=== PATIENT | female | born 1955 | race Caucasian/White ===

== ENCOUNTER 2016-12-22 04:48 | Observation (INO) | payer OTHER ==
[2016-12-22] MEDS ORDERED: ONDANSETRON 4 MG/2 ML VIAL ONE (04:59)
[2016-12-22] MEDS ORDERED: NS 1,000 ML IV ONE (05:04)
[2016-12-22] MEDS ORDERED: ONDANSETRON 4 MG/2 ML VIAL IVP ONE (05:04)
--- NOTE | 2016-12-22 05:04 | EDPHY ---
H & P Stated Complaint: left sided back pain, N/V since 2199 HPI/ROS: HPI CHIEF COMPLAINT: Left flank pain, nausea vomiting HISTORY OF PRESENT ILLNESS: This patient very pleasant 61-year-old female significant past medical history for thyroid disease she presents emergency room with left flank pain. Associated nausea vomiting. She states on Wednesday she had 30 minutes of this however resolved taking ibuprofen and heating pad. Her symptoms return last night around 10:30 p.m.. Symptoms have been persistent all night is 8/10 left flank pain dull ache/sharp stabbing. She denies any significant radiation to the abdomen. 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 . Ovarian cyst surgery. Social History: Denies daily use of drugs alcohol tobacco products Family History: Noncontributory ROS REVIEW OF SYSTEMS: A comprehensive 10 point review of systems is otherwise negative aside from elements mentioned in the history of present illness. Exam Constitutional triage nursing summary reviewed, vital signs reviewed, awake/ alert. Eyes normal conjunctivae and sclera, EOMI, PERRLA. HENT normal inspection, atraumatic, moist mucus membranes, no epistaxis, neck supple/ no meningismus, no raccoon eyes. Respiratory clear to auscultation bilaterally, normal breath sounds, no respiratory distress, no wheezing. Cardiovascular rate normal, regular rhythm, no murmur, no edema, distal pulses normal. Gastrointestinal soft, non-tender, no rebound, no guarding, normal bowel sounds, no distension, no pulsatile mass. Genitourinary left times palpation over left CVA Musculoskeletal no midline vertebral tenderness, full range of motion, no calf swelling, no tenderness of extremities, no meningismus, good pulses, neurovascularly intact. Skin pink, warm, & dry, no rash, skin atraumatic. Neurologic awake, alert and oriented x 3, AAOx3, moves all 4 extremities equally, motor intact, sensory intact, CN II-XII intact, normal cerebellar, normal vision, normal speech. Psychiatric normal mood/affect. Heme/Lymph/Immune no lymphadenopathy. Differential diagnosis includes but is not limited to and in no particular order : Bowel obstruction, appendicitis, gallbladder disease, diverticulitis, colitis , enteritis, perforated viscus, gastritis, GERD, esophagitis, urinary tract infection, pyelonephritis, kidney stones Medical Decision Making: Plan for this patient IV establishment IV fluid bolus , IV Dilaudid for pain control, IV Zofran for nausea, check abdominal blood work including urinalysis, CT scan abdomen pelvis without contrast for flank pain. Re-evaluate. Re-evaluation: CT scan of the abdomen pelvis without contrast for flank pain The results of the study are this shows a left-sided UPJ stone. 7.2 mm hydronephrosis present. The study was read by Dr. Del Castillo I viewed the images myself on the PACS system. 0629AM: After further discussion with this patient she is requesting hospital admission for pain control and nausea control. She has a rather large left UPJ stone. Hydronephrosis present. Urine is still pending at this time. She is requesting hospital admission. Will speak with the hospitalist service for admission for pain control and Urology to see this patient. 0642AM: I consult Dr. Blue with Urology on-call. They will plan on seeing the patient. Did recommend IV Rocephin 1 g. Urinalysis sent. Urine culture sent. Plan will be for admission to the hospital for intractable left flank pain. Nausea vomiting. Possible UTI. Source: Patient - Personal History Current Tetanus/Diphtheria Vaccine: Yes Current Tetanus Diphtheria and Acellular Pertussis (TDAP): Yes Tetanus Vaccine Date: <10 years - Medical/Surgical History Hx Asthma: No Hx Chronic Respiratory Disease: No Hx Diabetes: No Hx Cardiac Disease: No Hx Renal Disease: No Hx Cirrhosis: No Hx Alcoholism: No Hx HIV/AIDS: No Hx Splenectomy or Spleen Trauma: No Other PMH: ruptured ovarian cyst, 2 , thyroid problem - Social History Smoking Status: Never smoked Constitutional: Initial Vital Signs Temperature (C) 36.3 C 12/22/16 04:52 Heart Rate 75 12/22/16 04:52 Respiratory Rate 18 12/22/16 04:52 Blood Pressure 156/89 H 12/22/16 04:52 O2 Sat (%) 100 12/22/16 04:52 O2 Delivery Mode Room Air Allergies/Adverse Reactions: ampicillin Allergy (Verified 12/22/16 04:57) Sulfa (Sulfonamide Antibiotics) Allergy (Verified 12/22/16 04:57) Home Medications: Medication Instructions Recorded Cholecalciferol Vit D3 [Vitamin D3 2,000 units PO DAILY 12/22/16 2000 units tab (OTC)] Ibuprofen [Motrin (*)] 200 mg PO DAILY PRN 12/22/16 Levothyroxine [Synthroid 88 mcg 88 mcg PO DAILY06 12/22/16 (*)] Medical Decision Making - Diagnostics Imaging Results: Imaging Impressions Abdomen/Pelvis CT 12/22/16 05:12 Impression: 1. 7.2-mm calculus in the proximal left ureter with moderate left hydronephrosis. 2. Small hiatal hernia. 3. Multiple calcified leiomyomata in the uterus. 4. Other chronic findings as above. Results discussed with Dr. Bridger Carreon at 0534 hours on 22 December 2016. Final interpretation concurs with initial preliminary radiologist impression. Attention: This CT examination is specifically designed to evaluate patients who are clinically suspected of having acute obstructive uropathy. This examination does not use radiographic contrast, and as such, provides only a limited evaluation of the abdomen, pelvis and retroperitoneum. If there is further clinical suspicion for pathologic conditions other than obstructive uropathy, a complete CT evaluation of the abdomen and pelvis utilizing intravenous, oral, and rectal contrast should be considered. - Data Points Laboratory Results: Laboratory Results 12/22/16 05:06 12/22/16 05:06 Medications Given: Sodium Chloride (Ns) 1,000 mls @ 125 mls/hr IV CONT OJEL Stop: 06/20/17 06:59 Last Admin: 12/22/16 07:32 Dose: 1,000 mls Ketorolac Tromethamine (Toradol) 15 mg IVP Q6HRS JOEL Stop: 12/27/16 12:29 Last Admin: 12/22/16 18:20 Dose: 15 mg Morphine Sulfate (Morphine) 1 - 2 mg IVP Q1HR PRN PRN Reason: Pain, Severe Unable to Take PO Stop: 01/01/17 06:45 Last Admin: 12/22/16 12:29 Dose: 2 mg Tamsulosin HCl (Flomax) 0.4 mg PO DAILY JOEL Stop: 06/20/17 06:59 Last Admin: 12/22/16 10:50 Dose: Not Given Discontinued Medications Hydromorphone HCl (Dilaudid) 0.5 mg IVP EDNOW ONE Stop: 12/22/16 05:13 Last Admin: 12/22/16 05:25 Dose: 0.5 mg Sodium Chloride (Ns) 1,000 mls @ 0 mls/hr IV EDNOW ONE; Wide Open PRN Reason: Protocol Stop: 12/22/16 05:05 Last Admin: 12/22/16 05:04 Dose: 1,000 mls Ceftriaxone Sodium/Dextrose (Rocephin 1 Gm (Premix)) 50 mls @ 100 mls/hr IV EDNOW ONE PRN Reason: Protocol Stop: 12/22/16 07:00 Last Admin: 12/22/16 06:39 Dose: 50 mls Levofloxacin/Dextrose (Levaquin 500 Mg (Premix)) 100 mls @ 100 mls/hr IV ONCALL ONE PRN Reason: Protocol Stop: 12/22/16 17:59 Last Admin: 12/22/16 18:39 Dose: Not Given Ketorolac Tromethamine (Toradol) 15 mg IVP EDNOW ONE Stop: 12/22/16 05:47 Last Admin: 12/22/16 05:47 Dose: 15 mg Ondansetron HCl (Zofran) 4 mg IVP EDNOW ONE Stop: 12/22/16 05:05 Last Admin: 12/22/16 05:04 Dose: 4 mg Departure - Departure Disposition: [facility] Inpatient Acute Clinical Impression: Kidney stone on left side Condition: Good
[2016-12-22] MEDS ORDERED: HYDROmorphONE/DILAUDID 1 MG/ML INJ IVP ONE (05:12)
[2016-12-22 05:29] LABS: % IMMATURE GRANULYOCYTES 0.5 % (0.0-1.1); ABSOLUTE IMMATURE GRANULOCYTES 0.07 10^3/uL (0.00-0.10); ABSOLUTE NRBC COUNT 0.02 10^3/uL (0-0.01); ADD DIFF? NO; ADD MORPH? YES; ADD SCAN? NO; ATYPICAL LYMPHOCYTE FLAG 0 (0-99); FRAGMENT RBC FLAG 60 (0-99); HEMOGLOBIN 11.4 g/dL (12.6-16.3); LEFT SHIFT FLG 0 (0-99); LIPEMIA HEMOLYSIS FLAG 80 (0-99); MEAN CELL HEMOGLOBIN 30.9 pg (27.9-34.1); MEAN CELL HEMOGLOBIN CONCENTR. 33.5 g/dL (32.4-36.7); MEAN CELL VOLUME 92.1 fL (81.5-99.8); MEAN PLATELET VOLUME 10.7 fL (8.7-11.7); NRBC-AUTO% 0.1 % (0.0-0.2); PLATELET CLUMPS FLAG 0 (0-99); PLATELET COUNT 258 10^3/uL (150-400); RED BLOOD CELL COUNT 3.69 10^6/uL (4.18-5.33)
[2016-12-22 05:40] LABS: ALANINE AMINOTRANSFERASE 34 IU/L (9-52); ALBUMIN 4.6 g/dL (3.5-5.0); ALKALINE PHOSPHATASE 76 IU/L (38-126); ANION GAP 13 mEq/L (8-16); ASPARTATE AMINOTRANSFERASE 15 IU/L (14-46); BILIRUBIN,TOTAL 1.1 mg/dL (0.1-1.4); BILIRUBIN-CONJUGATED 0.2 mg/dL (0.0-0.5); BILIRUBIN-UNCONJUGATED 0.9 mg/dL (0.0-1.1); CALCIUM 9.2 mg/dL (8.5-10.4); CARBON DIOXIDE 22 mEq/l (22-31); CHLORIDE 103 mEq/L (97-110); CREATININE 0.9 mg/dL (0.6-1.0); GLOMERULAR FILTRATION RATE > 60; GLUCOSE 135 mg/dL (70-100); SODIUM 138 mEq/L (134-144); TOTAL PROTEIN 7.4 g/dL (6.3-8.2)
[2016-12-22] MEDS ORDERED: KETOROLAC 15 MG/1 ML SDV IVP ONE (05:46)
[2016-12-22] MEDS ORDERED: KETOROLAC 15 MG/1 ML SDV ONE (05:46)
[2016-12-22 06:01] LABS: INR 1.09 (0.83-1.16)
[2016-12-22 06:02] LABS: APTT 27.1 SEC (23.0-38.0)
[2016-12-22 06:06] LABS: RED CELL DISTRIBUTION WIDTH 20.1 % (11.5-15.2)
[2016-12-22 06:10] LABS: COLOR YELLOW; LEUKOCYTE ESTERASE,URINE 1+ (NEGATIVE); NITRITE,URINE NEGATIVE (NEGATIVE)
[2016-12-22 06:35] LABS: MUCUS TRACE /lpf (NONE-1+); RBC,URINE 50-182 /hpf (0-3)
[2016-12-22 06:38] LABS: ACANTHOCYTES 1+; ELLIPTOCYTES 1+; KERATOCYTES 1+; PLATELET ESTIMATE ADEQUATE (ADEQ)
[2016-12-22] MEDS ORDERED: oxyCODONE IR 5 MG TAB PO PRN (06:46)
[2016-12-22] MEDS ORDERED: ONDANSETRON DISINTEGRATING 4 MG TAB PO PRN (06:46)
[2016-12-22] MEDS ORDERED: KETOROLAC 15 MG/1 ML SDV IVP PRN (06:46)
[2016-12-22] MEDS ORDERED: LORazepam 0.5 MG TAB PO PRN (06:46)
[2016-12-22] MEDS ORDERED: ONDANSETRON 4 MG/2 ML VIAL IVP PRN (06:46)
[2016-12-22] MEDS ORDERED: ACETAMINOPHEN 325 MG TAB PO PRN (06:46)
[2016-12-22] MEDS ORDERED: CEFTRIAXONE 1 GM/DEXTROSE/50 ML BAG IV ONE (07:28)
[2016-12-22] MEDS ORDERED: TAMSULOSIN HCL 0.4 MG CAP PO ONE (07:28)
[2016-12-22] MEDS: TAMSULOSIN HCL 0.4 MG CAP PO SCH ×2 (07:31→10:50)
[2016-12-22] MEDS: NS 1,000 ML IV SCH (07:32)
--- NOTE | 2016-12-22 07:41 | GHP ---
[f rep st] HISTORY AND PHYSICAL DATE OF ADMISSION: 12/22/2016 CHIEF COMPLAINT: Left-sided flank pain. HISTORY OF PRESENT ILLNESS: A 61-year-old, healthy female, presents with acute onset of left-sided f lank pain. It started the day before her presentation, described as severe stabbing, associated with intractable nausea. She, thus, presented to the emergency department. The pain was nonradiating. She has never had pain like this before. She has never had a stone before. She did not have any fev ers, though she is shivering when I see her. PAST MEDICAL/SURGICAL HISTORY: 1. Hypothyroid. 2. Multiple gynecologic surgeries in her 30s. MEDICATIONS: Please see medication reconciliation. ALLERGIES: Ampicillin and sulfa. FAMILY HISTORY: No stones. SOCIAL HISTORY: She occasionally drinks alcohol. She does not smoke. REVIEW OF SYSTEMS: A 10-point review of systems is conducted and is negative, except per HPI. PHYSICAL EXAM: Blood pressure 103/67, heart rate 70, respiration rate 16, saturation 97% on room air , temperature is 36.3. In general, the patient is a very pleasant female, who appears mildly uncomfo rtable. No acute distress. HEENT shows her to be normocephalic, atraumatic. Cardiovascular exam sh ows a regular rate and rhythm. No murmurs, rubs, or gallops. Pulmonary exam shows lungs clear to au scultation bilaterally. Abdominal exam shows mild left-sided abdominal and flank pain. She has no r ebound or guarding. Skin exam showed no rash. exam is no Dickinson. Neurologic exam shows her to be alert and oriented x3. She is moving all extremities. Psychiatric exam shows normal mood and affec t. LABORATORY DATA: White count is 15.2, hemoglobin is 11.4, platelets are 258. INR is 1. Basic metab olic panel is normal. LFTs are normal. Urinalysis shows 3+ blood, 1+ leukocyte esterase, 50-182 red s, and 5-10 whites. DATA: 1. I discussed this Dr. Carreon. 2. I reviewed the preliminary read of her CT scan. It shows a 7.2 mm proximal left ureteral stone w ith moderate hydronephrosis. Small hiatal hernia. Calcified fibroid uterus. IMPRESSION AND PLAN: This is a 61-year-old female, presents with a 7.2 mm, left-sided, obstructing s tone. 1. Nephrolithiasis: Unlikely that this size stone will pass on its own. Regardless, I will prescri be her Flomax. Dr. Noris Blue has been consulted by the ED. We will control her pain with Yara dol as well as IV and oral narcotics. We will keep her n.p.o. for now. We will provide her antiemet ics. This is a high-risk diagnosis requiring IV narcotics. 2. Hypothyroid: Continue her Synthroid. /[id number]/MODL
--- NOTE | 2016-12-22 09:19 | SOAPPROG ---
SOAP Progress Note Assessment/Plan: Assessment: Left proximal ureteral stone. Plan: Proceed with ureteroscopy later this afternoon. Full consult to follow. Objective: Vital Signs Temp Pulse Resp BP Pulse Ox 36.3 C 62 14 104/64 97 12/22/16 08:12 12/22/16 08:12 12/22/16 08:12 12/22/16 08:12 12/22/16 06:36 12/21/16 12/22/16 12/23/16 05:59 05:59 05:59 Intake Total 175 Balance 175 PT 14.0 SEC (12.0-15.0) 12/22/16 05:06 INR 1.09 (0.83-1.16) 12/22/16 05:06 ICD10 Worksheet Patient Problems: Problems Problem Status Onset Kidney stone on left side Acute
[2016-12-22] MEDS: KETOROLAC 15 MG/1 ML SDV IVP SCH ×2 (12:24→18:20)
--- NOTE | 2016-12-22 13:33 | HOSPPROG ---
Hospitalist Progress Note Assessment/Plan: Chart reviewed. Pt seen and examined. 61 yo female admitted with 7 mm left obstructing nephrolithiasis with hydronephrosis. Pain controlled. No fevers. No flank pain. N/V resolved. Planning for ureteroscopy and definitive stone management with Dr. Hartman later today. Likely d/c home tomorrow. Subjective: Pt feels better. Denies fevers. No pain currently. No more N/V. Objective: Vital Signs Temp Pulse Resp BP Pulse Ox 36.3 C 62 14 104/64 97 12/22/16 08:12 12/22/16 08:12 12/22/16 08:12 12/22/16 08:12 12/22/16 06:36 12/21/16 12/22/16 12/23/16 05:59 05:59 05:59 Intake Total 175 Balance 175 PT 14.0 SEC (12.0-15.0) 12/22/16 05:06 INR 1.09 (0.83-1.16) 12/22/16 05:06 - Physical Exam Constitutional: no apparent distress Eyes: PERRL Ears, Nose, Mouth, Throat: moist mucous membranes Cardiovascular: regular rate and rhythym Respiratory: no respiratory distress Gastrointestinal: normoactive bowel sounds, soft, non-tender abdomen Skin: warm Musculoskeletal: full muscle strength Neurologic: AAOx3 ICD10 Worksheet Patient Problems: Problems Problem Status Onset Kidney stone on left side Acute
[2016-12-22] MEDS: levOFLOXACIN 500 MG/DEXTROSE 100 ML IV ONE ×2 (18:21→18:39)
[2016-12-23] MEDS: KETOROLAC 15 MG/1 ML SDV IVP SCH ×2 (00:22→05:46)
[2016-12-23 05:36] LABS: ANION GAP 4 mEq/L (8-16); CALCIUM 8.2 mg/dL (8.5-10.4); CARBON DIOXIDE 22 mEq/l (22-31); CHLORIDE 107 mEq/L (97-110); CREATININE 1.2 mg/dL (0.6-1.0); GLOMERULAR FILTRATION RATE 45; GLUCOSE 89 mg/dL (70-100); POTASSIUM 4.4 mEq/L (3.5-5.2); SODIUM 133 mEq/L (134-144)
[2016-12-23] MEDS: LEVOTHYROXINE 88 MCG TAB PO SCH (05:45)
[2016-12-23 05:47] LABS: % IMMATURE GRANULYOCYTES 0.8 % (0.0-1.1); ABSOLUTE IMMATURE GRANULOCYTES 0.07 10^3/uL (0.00-0.10); ABSOLUTE NRBC COUNT 0.02 10^3/uL (0-0.01); ADD DIFF? NO; ADD MORPH? YES; ADD SCAN? NO; ATYPICAL LYMPHOCYTE FLAG 0 (0-99); FRAGMENT RBC FLAG 40 (0-99); HEMATOCRIT 28.7 % (38.0-47.0); HEMOGLOBIN 9.5 g/dL (12.6-16.3); LEFT SHIFT FLG 0 (0-99); LIPEMIA HEMOLYSIS FLAG 80 (0-99); MEAN CELL HEMOGLOBIN 30.5 pg (27.9-34.1); MEAN CELL HEMOGLOBIN CONCENTR. 33.1 g/dL (32.4-36.7); MEAN CELL VOLUME 92.3 fL (81.5-99.8); MEAN PLATELET VOLUME 11.3 fL (8.7-11.7); NRBC-AUTO% 0.2 % (0.0-0.2); PLATELET CLUMPS FLAG 10 (0-99); PLATELET COUNT 222 10^3/uL (150-400); RED BLOOD CELL COUNT 3.11 10^6/uL (4.18-5.33)
[2016-12-23 05:57] LABS: RED CELL DISTRIBUTION WIDTH 20.4 % (11.5-15.2)
[2016-12-23] MEDS: NS 1,000 ML IV SCH (06:34)
[2016-12-23 07:06] LABS: ELLIPTOCYTES 1+; KERATOCYTES 1+; MICROCYTES 1+; PLATELET ESTIMATE ADEQUATE (ADEQ); SPHEROCYTES 1+
[2016-12-23] MEDS: TAMSULOSIN HCL 0.4 MG CAP PO SCH ×2 (08:05→10:43)
[2016-12-23] MEDS ORDERED: LIDOCAINE 2% JELLY 20 ML (UROJECT) ONE (16:24)
[2016-12-23] MEDS ORDERED: IOPAMIDOL (ISOVUE-M 300) 15 ML VIAL ONE ×2 (16:24→18:28)
[2016-12-23] MEDS ORDERED: LR 1,000 ML IV ONE (17:03)
--- NOTE | 2016-12-23 17:09 | PDANEPAE ---
ANE History of Present Illness L ureteroscopy for lythotripsy ANE Past Medical History - Cardiovascular History Hx Hypertension: No Hx Arrhythmias: No Hx CHF / Valvular Disease: No Hx Palpitations: No - Pulmonary History Hx COPD: No Hx Asthma/Reactive Airway Disease: No Hx Recent Upper Respiratory Infection: No Hx Oxygen in Use at Home: No Hx Sleep Apnea: No Sleep Apnea Screening Result - Last Documented: Negative - Endocrine History Hx Diabetes: No Hypothyroid: Yes Hyperthyroid: No Obesity: no - Liver History Hx Hepatic Disorders: No - Neurological & Psychiatric Hx Hx Neurological and Psychiatric Disorders: Yes Neurological / Psychiatric History Comment: Secondary depression in 2010 - Chronic Pain History Chronic Pain: No ANE Review of Systems Review of Systems: - Exercise capacity METS (RN): 4 METS ANE Patient History - Allergies Allergies/Adverse Reactions: ampicillin Allergy (Verified 12/22/16 04:57) Sulfa (Sulfonamide Antibiotics) Allergy (Verified 12/22/16 04:57) - Home Medications Home Medications: Cholecalciferol Vit D3 [Vitamin D3 2000 units tab (OTC)] 2,000 units PO DAILY [Last Taken 12/21/16] Ibuprofen [Motrin (*)] 200 mg PO DAILY PRN 12/22/16 [Last Taken 12/21/16] Levothyroxine [Synthroid 88 mcg (*)] 88 mcg PO DAILY06 12/22/16 [Last Taken ] - NPO status NPO Since - Liquids (Date): 12/22/16 NPO Since - Liquids (Time): 22:00 NPO Since - Solids (Date): 12/22/16 NPO Since - Solids (Time): 22:00 - Anes Hx Anes Hx: post operative nausea and vomiting, slow to awaken from anesthesia - Smoking Hx Smoking Status: Never smoked Marijuana use: No - Alcohol Use Alcohol Use: Occasionally - Family Anes Hx Family Anes Hx: none ANE Labs/Vital Signs - Labs Result Diagrams: 12/23/16 05:01 12/23/16 05:01 - Vital Signs Blood Pressure: 122/68 Heart Rate: 65 Respiratory Rate: 16 O2 Sat (%): 97 Height: 162.56 cm Weight: 58.967 kg ANE Physical Exam - Airway Neck exam: FROM Mallampati Score: Class 3 Mouth exam: normal dental/mouth exam (Upper caps) - Pulmonary Pulmonary: clear to auscultation - Cardiovascular Cardiovascular: regular rate and rhythym - ASA Status ASA Status: II ANE Anesthesia Plan Anesthesia Plan: general endotracheal anesthesia
[2016-12-23] MEDS ORDERED: MIDAZOLAM 2 MG/2 ML VIAL IVP ONE (17:12)
[2016-12-23] MEDS ORDERED: PROPOFOL 200 MG/20 ML VIAL ONE ×2 (17:18→18:07)
[2016-12-23] MEDS ORDERED: DEXAMETHASONE 4 MG/ML VIAL ONE (17:21)
--- NOTE | 2016-12-23 17:21 | HOSPPROG ---
Hospitalist Progress Note Assessment/Plan: * Kidney stone - 7mm with hydro -to OR with urology today * ARF -creatinine rising -stop toradol -continue IVF -recheck in am * Possible UTI -on ceftriaxone -urine culture relatively unremarkable -consider DC abx after procedure Subjective: No new complaints. Objective: Vital Signs Temp Pulse Resp BP Pulse Ox 37.0 C 65 16 122/68 H 97 12/23/16 15:18 12/23/16 17:12 12/23/16 17:12 12/23/16 17:12 12/23/16 17:12 PT 14.0 SEC (12.0-15.0) 12/22/16 05:06 INR 1.09 (0.83-1.16) 12/22/16 05:06 - Physical Exam Constitutional: no apparent distress, appears nourished, not in pain Cardiovascular: regular rate and rhythym, no murmur, rub, or gallop Respiratory: no respiratory distress, no rales or rhonchi, clear to auscultation Gastrointestinal: normoactive bowel sounds, soft, non-tender abdomen, no palpable masses Skin: no rashes or abrasions, no fluctuance, no induration Neurologic: AAOx3, sensation intact bilaterally Psychiatric: interacting appropriately, not anxious, not encephalopathic, thought process linear ICD10 Worksheet Patient Problems: Problems Problem Status Onset Kidney stone on left side Acute
[2016-12-23] MEDS ORDERED: IOPAMIDOL (ISOVUE-300) 150 ML BTL ONE (18:28)
[2016-12-23] MEDS ORDERED: ONDANSETRON 4 MG/2 ML VIAL ONE (18:36)
--- NOTE | 2016-12-23 19:08 | POSTOPPROG ---
Post Op Note Date of Operation: 12/23/16 Surgeon: Arlen Hartman (# [id number]) Anesthesia: LMA Pre-op Diagnosis: Left proximal ureteral calculus Post-op Diagnosis: Left distal ureteral calculus Procedure: Ureteroscopy w/ laser lithotripsy, basket extraction, stent placement Findings: See op note Inf/Abcess present in the surg proc area at time of surgery?: No EBL: Minimal Complications: None Drains: Other (4.7 Fr. x 24 cm left ureteral stent) Specimen(s): Left ureteral calculus fragments Text Box - Additional Text Additional Text: To RR in stable condition. She should be ready for discharge Th AM. Please discharge on narcotic of choice and Uribel 1 capsule QID for 2 weeks. She will need to FU in my office for ureteral stent removal in 2 weeks.
[2016-12-23] MEDS ORDERED: fentaNYL 100 MCG/2 ML INJ IVP PRN (19:11)
[2016-12-23] MEDS ORDERED: PROMETHAZINE HCL 25 MG/ML INJ IVP PRN (19:11)
[2016-12-23] MEDS ORDERED: NALOXONE HCL 0.4 MG/ML INJ IVP PRN (19:11)
[2016-12-23] MEDS ORDERED: ONDANSETRON 4 MG/2 ML VIAL IVP PRN (19:11)
--- NOTE | 2016-12-23 19:20 | POSTANESTH ---
Post Anesthetic Evaluation Cardiovascular Status: Normal, Stable Respiratory Status: Normal, Stable Level of Consciousness/Mental Status: Mildly Sleepy, Arousable Pain Control: Adequate, Prn Tx Ordered Nausea/Vomiting Control: Adequate, Prn Tx Ordered Complications Possibly Related to Anesthesia: None Noted
[2016-12-23] MEDS: PHENAZOPYRIDINE HCL 200 MG TAB PO SCH (20:40)
--- NOTE | 2016-12-24 04:39 | GOP ---
[f rep st] OPERATIVE REPORT DATE OF OPERATION: 12/23/2016 SURGEON: Arlen Hartman MD ANESTHESIA: Laryngeal mask. PREOPERATIVE DIAGNOSIS: Symptomatic left proximal ureteral calculus. POSTOPERATIVE DIAGNOSIS: Symptomatic distal left ureteral calculus. PROCEDURE PERFORMED: 1. Cystourethroscopy, left retrograde pyelography. 2. Left ureteroscopy with holmium laser calculus lithotripsy, and basket extraction. 3. Left ureteral stent placement (4.7-Afghan x 24 cm). FINDINGS: Migration of previously noted left proximal ureteral calculus into the distal left ureter. SPECIMENS: Left ureteral calculus fragments. ESTIMATED BLOOD LOSS: Minimal. INDICATIONS: This woman was admitted with symptoms related to a left ureteral calculus which she has been unable to pass spontaneously. It was recommended that she undergo intraoperative management. The indications for the procedures as well as potential risks and complications, were discussed with the patient preoperatively. She appeared to understand, her questions were answered, and she wished to proceed. Written informed surgical consent was thereafter obtained. DESCRIPTION OF PROCEDURE: The patient was brought to the operating room and administered laryngeal m ask anesthesia. She was carefully placed in the dorsal lithotomy position on the cystoscopic table. The genital area was sterilely prepped with Betadine scrub and paint, then draped in the usual steri le fashion. Cystoscopy was performed with the 30 degree lens through a 22-Afghan sheath. Urethra an d bladder were unremarkable. Ureteral orifices were normal in regard to shape and position along the trigone. A 5-Afghan open-ended ureteral catheter was used to perform retrograde pyelography on the left side. This revealed a sizable filling defect in the distal left ureter with moderate proximal h ydronephrosis and hydroureter. No other intraluminal filling defects nor other abnormalities were ap preciated. It appeared that the calculus had migrated into the distal left ureter, relative to the p roximal position that was seen when the CT scan was performed at the time movement of admission. I then passed a 0.035 inch hydrophilic guidewire up the left ureter until it was seen within the nel l collecting system fluoroscopically. The distal ureter was dilated with a 4 cm balloon by maintaini ng a pressure of 16 atmospheres for about 4 minutes. The balloon dilator and cystoscope were then re moved while keeping the guidewire in place. It should be mentioned that upon insertion of the guide wire there was a fair amount of precipitant-like debris that exited from the left ureteral orifice. There was no gerhard pus appreciated. After dilation of distal left ureter, a semi-rigid ureteroscopy was performed alongside the guidewire. The calculus was seen within the distal left ureter. A 365 m icron holmium laser fiber was used to fragment the calculus into small pieces. These were collected from the ureter using a Zero Tip Nitinol stone basket without complication. The specimens were sent to Pathology for chemical analysis. The ureteroscope was then removed and the cystoscope was back-lo aded over the guidewire. A 4.7-Afghan x 24 cm hydrophilic ureteral stent was advanced over the guide wire until it was properly positioned as seen fluoroscopically in the kidney and cystoscopically in t he bladder. The bladder was then drained of all return which was essentially clear. The instruments were removed and 20 cc of 2% lidocaine injected transurethrally for postoperative analgesic purposes . The patient was then awakened, transferred to her bed, then taken to the recovery room. She ilana ated the procedure well overall. COMPLICATIONS: None. DISPOSITION: She was transferred to the recovery in stable condition. She will be transferred back to the floor once deemed appropriate in Recovery. She should be ready for discharge early m sharath. Please discharge the patient on narcotic of choice, as well as Uribel 1 capsule q.i.d. for t he next 2 weeks. She should follow up in my office in approximately 2 weeks for ureteral stent remov al. /[id number]/MODL
[2016-12-24 05:19] VITALS: O2SAT 93
[2016-12-24] MEDS: NS 1,000 ML IV SCH (05:20)
[2016-12-24] MEDS: LEVOTHYROXINE 88 MCG TAB PO SCH (05:23)
[2016-12-24 05:52] LABS: % IMMATURE GRANULYOCYTES 0.4 % (0.0-1.1); ABSOLUTE IMMATURE GRANULOCYTES 0.03 10^3/uL (0.00-0.10); ADD DIFF? NO; ADD MORPH? NO; ADD SCAN? NO; ATYPICAL LYMPHOCYTE FLAG 0 (0-99); FRAGMENT RBC FLAG 40 (0-99); HEMATOCRIT 29.7 % (38.0-47.0); HEMOGLOBIN 9.9 g/dL (12.6-16.3); LEFT SHIFT FLG 0 (0-99); LIPEMIA HEMOLYSIS FLAG 80 (0-99); MEAN CELL HEMOGLOBIN 30.7 pg (27.9-34.1); MEAN CELL HEMOGLOBIN CONCENTR. 33.3 g/dL (32.4-36.7); MEAN PLATELET VOLUME 11.4 fL (8.7-11.7); PLATELET CLUMPS FLAG 10 (0-99); PLATELET COUNT 215 10^3/uL (150-400); RED BLOOD CELL COUNT 3.23 10^6/uL (4.18-5.33); RED CELL DISTRIBUTION WIDTH 19.7 % (11.5-15.2)
[2016-12-24 06:08] LABS: ANION GAP 7 mEq/L (8-16); CALCIUM 8.5 mg/dL (8.5-10.4); CARBON DIOXIDE 19 mEq/l (22-31); CHLORIDE 108 mEq/L (97-110); CREATININE 0.8 mg/dL (0.6-1.0); GLOMERULAR FILTRATION RATE > 60; GLUCOSE 107 mg/dL (70-100); POTASSIUM 4.4 mEq/L (3.5-5.2); SODIUM 134 mEq/L (134-144)
[2016-12-24 07:52] VITALS: BP 100/63; PULSE 85; RESP 15; TEMP 98.3
[2016-12-24] MEDS: PHENAZOPYRIDINE HCL 200 MG TAB PO SCH (09:25)
--- NOTE | 2016-12-24 10:25 | ASMTCMCOM ---
CM Note CM Note Notes: Pt to DC today with no DC needs following removal of kidney stone. Date Signed: 12/24/2016 10:24 AM Electronically Signed By:Jessie Soares LCSW
--- NOTE | 2016-12-24 11:16 | PDDCSUM ---
Discharge Summary Discharge Summary: 61 yo admitted for left sided ureteral stone. Urology consulted. S/P lithotripsy and extraction on 12/[address] Ndiaye. No symptoms on discharge. Tolerating PO. Denies pain. Wants discharge. Will f/u in [address] Ndiaye. All questions answered. DDX: * Kidney stone - 7mm with hydro * ARF -resolved * Possible UTI -on ceftriaxone. D/C after procedure D/C Meds: no changes to her home regimen were made. Did start Percocet 5mg po q 3hrs prn PE: VSS Unremarkable exam F/U: per above Total time spent on discharge: 35 minutes
--- NOTE | 2016-12-24 17:18 | ASDISCHSUM ---
Discharge Information Plan Status:Home with No Needs Medically Cleared to Leave: Discharge Date:12/24/2016 11:52 AM CM D/C Disposition: ADT D/C Disposition:Home, Routine, Self-Care Projected Discharge Date:12/24/2016 12:00 AM Transportation at D/C: Discharge Delay Reason: Follow-Up Date:12/24/2016 12:00 AM Discharge Slot: Final Diagnosis: Placement Information Patient Contact Information Contact Name:BONNIE Relationship:Angel Address: Work Phone: City:[place] [facility] Alternate Phone: State/Zip Code:[place] Email: Financial Information Financial Class:HMO and PPO Plans Primary Plan Desc:[employer] Primary Plan Number:[id number] Secondary Plan Desc: Secondary Plan Number: Assessment Information [facility] CM Progress Note CM Note CM Note Notes: Pt to DC today with no DC needs following removal of kidney stone. Date Signed: 12/24/2016 10:24 AM Electronically Signed By:Jessie Soares LCSW Intervention Information
[2016-12-29 08:28] LABS: SOURCE OF STONE LEFT URETERAL
[2016-12-29 08:30] LABS: NIDUS NOT OBSERVED
== END 2016-12-24 11:52 | disposition home or self-care (01) ==
LOC: INTOOBSV 06:32 → F1N 08:35 → OBSVTOIN 12-23 09:44 → INTOOBSV 12-23 09:44
PROVIDERS: ADMIT Student in an Organized Health Care Education/Training Program; ATTEND Student in an Organized Health Care Education/Training Program
PROC: 0T778DZ Dilation of Left Ureter with Intraluminal Device, Via Natural or Artificial Opening Endoscopic (ICD-10-PCS; principal; 2016-12-22)
PROC: 0TC78ZZ Extirpation of Matter from Left Ureter, Via Natural or Artificial Opening Endoscopic (ICD-10-PCS; principal; 2016-12-22)
PROC: BT141ZZ Fluoroscopy of Kidneys, Ureters and Bladder using Low Osmolar Contrast (ICD-10-PCS; principal; 2016-12-22)
DX: N13.2 Hydronephrosis with renal and ureteral calculous obstruction (principal); N17.9 Acute kidney failure, unspecified; N39.0 Urinary tract infection, site not specified; E03.9 Hypothyroidism, unspecified
CPT/HCPCS: 52356; 74176; 76001; 96361; 96374; 96375; 99285; C1758; C1769; G0378; 82365-90; C2625; J0696; J1100; J1170; J1885; J1956; J2250; J2405; J2704; Q9967

== ENCOUNTER → 2017-12-16 | Outpatient (CLI) | payer OTHER | LOC: BMCIMAGING 08:28 | PROVIDERS: ATTEND Nurse Practitioner Family | DX: Z12.31 Encounter for screening mammogram for malignant neoplasm of breast (principal) ==